=== PATIENT | male | born 1980 | race Caucasian/White ===

== ENCOUNTER 2017-03-27 05:02 | Emergency (ER) | payer MEDICAID ==
[~2017-03-27] VITALS: Ht 188 cm; Wt 96.4 kg
[2017-03-27 05:04] VITALS: BP 137/94
== END 2017-03-27 06:12 | disposition home or self-care (01) ==
LOC: ED 05:50
DX: B86 Scabies (principal)
CPT/HCPCS: 99283

== ENCOUNTER 2018-10-25 02:25 | Emergency (ER) | payer MEDICAID ==
[~2018-10-25] VITALS: Ht 188 cm; Wt 108.8 kg
[2018-10-25 02:26] VITALS: BP 138/87
[2018-10-25] MEDS ORDERED: LIDOCAINE-MPF 1%, 5ML INFIL ONE (03:00)
[2018-10-25] MEDS ORDERED: DOXYCYCLINE 100MG TABLET PO ONE (03:00)
[2018-10-25] MEDS ORDERED: DOXYCYCLINE 100MG TABLET ONE (03:11)
[2018-10-25] MEDS ORDERED: LIDOCAINE-MPF 1%, 5ML ONE (03:11)
--- NOTE | 2018-10-25 03:30 | NUR ---
Patient/Caregiver given discharge instructions and they have confirmed that they understand the instructions. Patient ambulatory with steady gait.
== END 2018-10-25 03:32 | disposition home or self-care (01) ==
LOC: ED 03:12
DX: L03.114 Cellulitis of left upper limb (principal); L02.414 Cutaneous abscess of left upper limb; F17.200 Nicotine dependence, unspecified, uncomplicated
CPT/HCPCS: 10060; 99284

== ENCOUNTER 2019-03-08 07:33 | Inpatient (IN) | payer MEDICAID ==
[~2019-03-08] VITALS: Ht 188 cm; Wt 112.0 kg
[2019-03-12 12:28] VITALS: BP 121/82
== END 2019-03-12 17:36 | disposition home or self-care (01) | DRG 872 ==
LOC: ED 09:23 → EDIP 10:16 → 3NE 11:54
PROVIDERS: ADMIT Family Medicine; ATTEND Family Medicine
PROC: 0X9F0ZZ Drainage of Left Lower Arm, Open Approach (ICD-10-PCS; principal; 2019-03-08)
PROC: 02HV33Z Insertion of Infusion Device into Superior Vena Cava, Percutaneous Approach (ICD-10-PCS; 2019-03-10)
PROC: B5181ZA Fluoroscopy of Superior Vena Cava using Low Osmolar Contrast, Guidance (ICD-10-PCS; 2019-03-10)
PROC: B548ZZA Ultrasonography of Superior Vena Cava, Guidance (ICD-10-PCS; 2019-03-10)
DX: A41.9 Sepsis, unspecified organism (principal); F11.23 Opioid dependence with withdrawal; L02.414 Cutaneous abscess of left upper limb; L03.114 Cellulitis of left upper limb; B19.20 Unspecified viral hepatitis C without hepatic coma; E83.39 Other disorders of phosphorus metabolism; F17.210 Nicotine dependence, cigarettes, uncomplicated; Z82.49 Family history of ischemic heart disease and other diseases of the circulatory system
CPT/HCPCS: 10060; 36415; 36573; 80048; 80053; 80074; 80202; 80307; 82040; 83735; 84100; 84145; 85025; 85651; 86140; 87040; 87521; 87806; 90471; 90715; 93306; 96374; 99285; G0378; J0295; J1170; J1650; J2405; J3370; Q9967; C1751; G0475; J7030; J7040

== ENCOUNTER 2019-09-15 11:56 | Emergency (ER) | payer MEDICAID ==
[~2019-09-15] VITALS: Ht 188 cm; Wt 117.8 kg
[~2019-09-15 11:56] MED LIST: AMOX1TAB64 PO; LACT1TAB13 PO; METH10TA2 PO; NICO-487 TD; SULF1TAB24 PO
[2019-09-15 12:20] VITALS: BP 141/91
--- NOTE | 2019-09-15 12:43 | NUR ---
DR. KEEN AT BEDSIDE. PT IN NO DISTRESS. PT C/O L FOOT REDNESS AND SWELLING WITH A LESION X 2-3 DAYS. CALL BUTTON IN LAP.
[2019-09-15] MEDS ORDERED: NEOSPORIN OINT. PKT 1 PACKET ONE (12:48)
[2019-09-15] MEDS ORDERED: LIDOCAINE 1%-EPI 1:100K, 20ML ONE (12:48)
[2019-09-15] MEDS ORDERED: LIDOCAINE-MPF 1%, 5ML INFIL ONE (13:00)
[2019-09-15 13:14] LABS: BASOPHILS # (AUTO) 0.05 x10^3/uL (0-0.1); BASOPHILS % (AUTO) 1 % (0-1); EOSINOPHILS # (AUTO) 0.17 x10^3/uL (0-0.4); EOSINOPHILS % (AUTO) 2 % (1-7); LYMPHOCYTES # (AUTO) 2.54 x10^3/uL (1-3.4); LYMPHOCYTES % (AUTO) 25 % (22-44); MD NO; MEAN CORPUSCULAR HEMOGLOBIN 28.9 pg (27.5-34.5); MEAN CORPUSCULAR HGB CONC 34.6 g/dL (33.2-36.2); MEAN CORPUSCULAR VOLUME 83.5 fL (81-97); MEAN PLATELET VOLUME 8.6 fL (7.4-10.4); MONOCYTES # (AUTO) 0.89 x10^3/uL (0.2-0.8); MONOCYTES % (AUTO) 9 % (2-9); NEUTROPHILS # (AUTO) 6.59 x10^3/uL (1.8-6.8); NEUTROPHILS % (AUTO) 64 % (42-75); PLATELET COUNT 208 x10^3/uL (130-400); RED BLOOD COUNT 5.25 x10^6/uL (4.38-5.82); RED CELL DISTRIBUTION WIDTH 13.7 % (9.4-14.8)
[2019-09-15 13:24] LABS: ALBUMIN 3.8 g/dL (3.4-5.0); ANION GAP 8 mmol/L (5-15); CALCIUM 9.2 mg/dL (8.5-10.1); CHLORIDE 102 mmol/L (98-107); CREATININE 1.07 mg/dL (0.7-1.3)
--- NOTE | 2019-09-15 14:31 | NUR ---
Patient given discharge instructions and they have confirmed that they understand the instructions. Patient ambulatory with steady gait.
== END 2019-09-15 17:00 | disposition home or self-care (01) ==
LOC: ED 12:46
DX: L02.612 Cutaneous abscess of left foot (principal); F17.200 Nicotine dependence, unspecified, uncomplicated
CPT/HCPCS: 10060; 36415; 80048; 82040; 85025; 99284

== ENCOUNTER 2020-05-24 00:02 | Emergency (ER) | payer MEDICAID ==
[~2020-05-24] VITALS: Ht 188 cm; Wt 110.0 kg
[2020-05-24 00:06] VITALS: BP 137/90
--- NOTE | 2020-05-24 03:24 | NUR ---
coater: Pt seen by provider in triage. Signed out AMA with registration and refused speaking with charge rn.
--- NOTE | 2020-05-24 04:52 | NUR ---
Pt called back per Dr. Farley's request. Pt agreed he would come back "in the morning" stating "I wanted some sleep, I was tired of sitting in that chair". RN stated they had a room for patient. Pt encouraged to return sami d/t risks of delay of care. Pt verbalized understanding and agreed that he would return a little later in the morning. Pt again encouraged to come sami.
== END 2020-05-24 03:27 | disposition left against medical advice (07) ==
LOC: ED 03:02
DX: L03.114 Cellulitis of left upper limb (principal)
CPT/HCPCS: 99284